=== PATIENT | male | born 1965 | race African-American/Black ===

== ENCOUNTER 2016-07-11 22:30 | Emergency (ER) ==
[2016-07-11 22:44] VITALS: BP 138/88
[2016-07-11] MEDS ORDERED: NORCO-7.5 PO ONE (23:10)
[2016-07-11] MEDS ORDERED: MOBIC PO ONE (23:10)
[2016-07-11] MEDS ORDERED: FLEXERIL PO ONE (23:10)
--- NOTE | 2016-07-11 23:14 | PROVIDER DOCUMENTATION ---
HPI-Musculoskeletal Pain/Inj <CedricNaviCalvin Vanessa ParminderZita - Last Filed: 07/11/16 23:11> - GENERAL Source: patient - HX OF PRESENT ILLNESS-MUSKULOSKELTAL Severity in ED: mild Onset/Duration: other (chronic) Timing: still present Any recent injury?: No Locality of Occurance: Home Similar Symptoms Previously?: Yes Recently seen or treated by another doctor?: No - BACK & NECK PAIN/INJURY Back/Neck Pain Location: reports: C-spine, lumbar spine <Karina Fitzgerald - Last Filed: 07/11/16 23:19> - GENERAL Chief Complaint: Back Pain Stated Complaint: BACK PAIN Time Seen by Provider: 07/11/16 22:58 - HX OF PRESENT ILLNESS-MUSKULOSKELTAL Nature of Presenting Problem: 50 year old M presents to the ED with a cc of lower back pain and neck pain. Pt states that he has chronic back pain. Pt states that he has not tried any Tylenol or Ibuprofen with no relief. PT states that he has been taking Ambien with no relief (Karina Fitzgerald) Review of Systems - Adult - REVIEW OF SYSTEMS - ADULT Constitutional: denies: chills, fever Eyes: reports: no symptoms reported Ears, Nose, Mouth & Throat: reports: no symptoms reported Cardiovascular: reports: no symptoms reported Respiratory: reports: no symptoms reported Gastrointestinal: reports: no symptoms reported Genitourinary: reports: no symptoms reported Musculoskeletal: reports: back pain, neck pain. denies: muscle aches, muscle weakness Integumentary: denies: skin sores/ulcer, skin thickening Neurological: reports: no symptoms reported Psychiatric: reports: no symptoms reported Endocrine: reports: no symptoms reported Hematologic/Lymphatic: reports: no symptoms reported Allergic/Immunologic: reports: no symptoms reported All Other Systems: Reviewed and Negative <Karina Fitzgerald - Last Filed: 07/11/16 23:19> Past History - Adult - PAST MEDICAL HISTORY-ADULT Major Childhood Illnesses: reports: denies history Cardiovascular: reports: arrhythmia, HTN, hyperlipidemia, [place] (cardiac cath no stent placed) Respiratory: reports: asthma Gastrointestinal: reports: denies history Obstetrical/Gynecological: reports: denies history Genitourinary: reports: denies history Musculoskeletal: reports: chronic pain (back), intervertebral disc disease Neurological: reports: denies history Endocrine/Immune: reports: Diabetes Other Conditions: reports: denies history - PRIOR SURGERIES/PROCEDURES Surgical/Procedure History: reports: orthopedic (extremity) (left hand) - PRIOR HOSPITALIZATIONS Prior Hospitalizations: reports: none - IMMUNIZATION STATUS Childhood Immunizations: See Nurse Assessment Flu Vaccine: See Nurse Assessment - FAMILY HISTORY Family History: reviewed, not pertinent, CVA/TIA (dad) <Calvin Andrade - Last Filed: 07/11/16 23:11> - PAST MEDICAL HISTORY-ADULT Review of Records: reports: Nursing Assessment Review, Medications Reviewed Cardiovascular: reports: HTN, hyperlipidemia, [place] Gastrointestinal: reports: GERD Musculoskeletal: reports: chronic pain Neurological: reports: CVA Endocrine/Immune: reports: Diabetes Other Conditions: reports: blindness - PRIOR SURGERIES/PROCEDURES Surgical/Procedure History: reports: cardiac stent, orthopedic (extremity), back /neck, other (eye) - IMMUNIZATION STATUS Childhood Immunizations: See Nurse Assessment Flu Vaccine: See Nurse Assessment - SOCIAL HISTORY Smoking: cigarettes Provider spent 3-5 mins advising pt. on dangers of tobacco.: Discussed manners to quit use, and f/u contacts for add'l counseling. Substance Use: none/never Alcohol Use Frequency: occasionally <Karina Fitzgerald - Last Filed: 07/11/16 23:19> Physical Exam-Injury Related - Physical Exam-Injury Related Initial Vital Signs Reviewed: Yes General Appearance: appears well, alert, no apparent distress Respiratory: chest non-tender, lungs clear, normal breath sounds Cardiovascular: normal peripheral pulses, regular rate, rhythm, no edema Back Exam: other (mild lower back tendernedd) Extremity: normal range of motion, non-tender, normal inspection Integumentary: normal color, warm/dry Psych/Mental Status: normal mood/affect, normal thought content, normal thought process, oriented x 3 <Karina Fitzgerald - Last Filed: 07/11/16 23:19> Progress <Calvin Andrade - Last Filed: 07/11/16 23:11> <Karina Fitzgerald - Last Filed: 07/11/16 23:19> - PLAN OF CARE/RESULTS Progress/Plan/Lab Results: plan of care: medications Orders Category Date Time Status Cyclobenzaprine [Flexeril] Med 07/11/16 23:10 Discontinued 10 mg PO NOW ONE Hydrocodone/APAP 7.5 mg/325 mg [[place]-7.5] Med 07/11/16 23:10 Discontinued 1 each PO NOW ONE Meloxicam [Mobic] Med 07/11/16 23:10 Discontinued 15 mg PO NOW ONE Vital Signs - 24 hr 07/11/16 22:40 Temperature 98.5 F Pulse Rate 74 Respiratory 18 Rate Blood Pressure 138/88 O2 Sat by Pulse 94 L Oximetry Pt given results and will be d/c home w/ rx to follow up with PCP. Pt verbally understood instructions. PT remained clinically stable throughout the course of the ED stay and will return if symptoms worsen. (Karina Fitzgerald) Departure - Departure Time of Disposition Order: 23:11 Certified Medical Emergency: Emergent <Calvin Andrade - Last Filed: 07/11/16 23:11> <Karina Fitzgerald - Last Filed: 07/11/16 23:19> - Departure DIAGNOSIS: Chronic lower back pain Qualifiers: Back pain laterality: bilateral Sciatica presence: without sciatica Qualified Code(s): M54.5 - Low back pain Disposition: HOME 01 Condition: Good Additional Instructions: ED Follow Up Instructions: You have been treated by a care provider in the Emergency Department. These instructions are being provided to you so you can have an understanding of how to care for yourself upon discharge. Upon discharge from the Emergency Department, you are responsible for making arrangements for follow-up care by a physician of your choice. Take all prescribed medications as directed. Return to the Emergency Department immediately for any new or worsening symptoms. You may call the Physician Referral phone number at [phone] to obtain a list of Physicians who are taking new patients. Prescriptions: Cyclobenzaprine [Flexeril] 10 mg PO TID PRN #30 tablet PRN Reason: Spasms Meloxicam [Mobic] 15 mg PO DAILY PRN #30 tablet PRN Reason: Pain Hydrocodone/Acetaminophen [[place] 7.5-325 Tablet] 1 each PO Q4-6H PRN PRN #20 tablet PRN Reason: Pain Referrals: None,PCP [Primary Care Provider] - Attestation - Scribe Verification/Attestation Scribe:: Karina Fitzgerald Acting as Scribe for:: Calvin Andrade Scribe documention review:: This chart was documented by a scribe and accurately reflects the service the provider performed and the decisions made by the provider. <Karina Fitzgerald - Last Filed: 07/11/16 23:19> Physician Attestation
== END 2016-07-11 23:30 | disposition home or self-care (01) ==
LOC: ED 22:30
DX: G89.29 Other chronic pain (principal); M54.5 Low back pain; M54.2 Cervicalgia; I10 Essential (primary) hypertension; E78.5 Hyperlipidemia, unspecified; I25.2 Old myocardial infarction; E11.9 Type 2 diabetes mellitus without complications; F17.210 Nicotine dependence, cigarettes, uncomplicated; Z79.899 Other long term (current) drug therapy; Z71.6 Tobacco abuse counseling; Z86.73 Personal history of transient ischemic attack (TIA), and cerebral infarction without residual deficits; Z95.5 Presence of coronary angioplasty implant and graft

== ENCOUNTER 2018-12-27 05:22 | Inpatient (IN) ==
[2018-12-27] MEDS ORDERED: ASPIRIN PO ONE (05:32)
[2018-12-27] MEDS ORDERED: DUONEB (A & A) INH ONE ×2 (05:54→06:09)
[2018-12-27 06:02] LABS: BASO# 0.03 X1000 (0.0-0.2); BASO% 0.3 % (0.0-0.8); EOS% 13.2 % (0.0-10.0); HEMATOCRIT 44.1 % (42.0-52.0); HEMOGLOBIN 14.9 g/dL (14.0-18.0); IMM GRAN# 0.05 X1000 (0.0-0.04); IMM GRAN% 0.5 % (0.0-0.5); LYMPH# 2.76 X1000 (1.2-3.4); MCH 28.4 PG (27-31); MCHC 33.8 g/dL (33-37); MONO# 0.88 X1000 (0.11-0.59); MONO% 8.9 % (1.7-9.3); MPV 10.1 FL (7.4-10.4); NEUT# 4.82 X1000 (1.4-6.5); NEUT% 49.1 % (42.2-75.2); PLT 329 X1000 (130-400); RBC 5.25 XMIL (4.7-6.1); RDW 16.7 % (11.5-14.5); WBC 9.84 X1000 (4.8-10.8)
[2018-12-27] MEDS ORDERED: MORPHINE IV ONE (06:09)
[2018-12-27] MEDS ORDERED: SOLU-MEDROL IV ONE (06:09)
[2018-12-27 06:18] LABS: AGAP 13; ALB/GLOB RATIO 1.5; ALBUMIN 4.4 g/dL (3.5-5.0); ALKALINE PHOSPHATASE 72 U/L (32-122); BUN 11 mg/dL (8-22); CALCIUM 9.3 mg/dL (8.8-10.2); CHLORIDE 104 mmol/L (98-107); COSMO 282; CREATININE 0.7 mg/dL (0.7-1.2); ESTIMATED GFR > 60; GLUCOSE 122 mg/dL (70-104); GOT 18 U/L (10-34); GPT 16 U/L (10-44); POTASSIUM 3.7 mmol/L (3.5-5.1); SODIUM 141 mmol/L (136-145); TCO2 24 mmol/L (25-35); TOTAL BILIRUBIN 0.29 mg/dL (0.20-1.00); TOTAL PROTEIN 7.3 g/dL (6.3-8.3)
[2018-12-27 06:25] LABS: CK PROFILE 332 U/L (24-204)
[2018-12-27 06:37] LABS: INR 0.93; PROTIME 12.5 Seconds (11.0-16.0)
--- NOTE | 2018-12-27 06:46 | PROVIDER DOCUMENTATION ---
HPI-General Adult - General Chief Complaint: Chest Pain Stated Complaint: Chest Pain and SOB Time Seen by Provider: 12/27/18 06:04 Source: patient Allergies/Adverse Reactions: Patient Allergies Allergy/AdvReac Type Severity Reaction Status Date / Time No Known Allergies Allergy Verified 12/27/18 05:47 Home Medications: Home Medication List Medication Instructions Recorded Confirmed Last Taken Type Lisinopril/Hydrochlorothiazide 1 each PO HS 11/06/17 12/27/18 Unknown History [Lisinopril-Hctz 20-12.5 mg Tab] Metformin [Glucophage] 500 mg PO DAILY 11/06/17 12/27/18 11/06/17 History Albuterol Sulfate [Albuterol 8.5 gm INHALATION Q4-6H PRN PRN #1 09/20/18 12/27/18 Unknown Rx Sulfate Hfa] [email or web address] Hydrocodone/Acetaminophen [[place] 1 ea PO TID 12/27/18 12/27/18 Unknown History 10-325 Tablet] - History of Present Illness -Gen Adult Nature of Presenting Problems: Pt presents with sob and cp, x 2 days, pmh of COPD, pt still smoking, cp is pressure to sharp, comes and goes, pt tried albuterol at home with minimal relief, pt denies f/c, mack, cough, ap, n/v/d. Pt is lying in bed in no acute distress. Location of Pain/Injury: reports: chest Pain Radiation: reports: no radiation Quality of Pain: reports: pressure, sharp Severity: reports: mild Onset/Duration: reports: 2 days ago Timing: reports: still present Context/Activities at Onset: reports: none Modifying Factors: improves with: nothing Associated Symptoms: reports: denies symptoms Similar Symptoms Previously?: Yes Recently seen or treated by another doctor?: No Review of Systems - Adult - REVIEW OF SYSTEMS - ADULT Constitutional: reports: no symptoms reported Eyes: reports: no symptoms reported Ears, Nose, Mouth & Throat: reports: no symptoms reported Cardiovascular: reports: see HPI Respiratory: reports: see HPI Gastrointestinal: reports: no symptoms reported Genitourinary: reports: no symptoms reported Musculoskeletal: reports: no symptoms reported Integumentary: reports: no symptoms reported Neurological: reports: no symptoms reported Psychiatric: reports: no symptoms reported Endocrine: reports: no symptoms reported Hematologic/Lymphatic: reports: no symptoms reported Allergic/Immunologic: reports: no symptoms reported All Other Systems: Reviewed and Negative Past History - Adult - PAST MEDICAL HISTORY-ADULT Review of Records: reports: Old Records Reviewed, Nursing Assessment Review, Medications Reviewed, Social history reviewed & non-contributory. Major Childhood Illnesses: reports: denies history Cardiovascular: reports: HTN, hyperlipidemia, [place] Respiratory: reports: asthma Gastrointestinal: reports: GERD Obstetrical/Gynecological: reports: denies history Genitourinary: reports: denies history Musculoskeletal: reports: chronic pain Neurological: reports: CVA, TIA Psychiatric: reports: depression Endocrine/Immune: reports: Diabetes Other Conditions: reports: blindness - PRIOR SURGERIES/PROCEDURES Surgical/Procedure History: reports: orthopedic (extremity), back/neck, other (eye) - PRIOR HOSPITALIZATIONS Prior Hospitalizations: reports: none - IMMUNIZATION STATUS Childhood Immunizations: See Nurse Assessment Flu Vaccine: See Nurse Assessment - FAMILY HISTORY Family History: reviewed, not pertinent, CVA/TIA (dad) Physical Exam-General - PHYSICAL EXAM-ADULT Initial Vital Signs Reviewed: Yes - CONSTITUTIONAL General Appearance: appears well - EYES Eyes: PERRL/EOMI - HEAD, EARS, NOSE, MOUTH & THROAT HENMT: normocephalic/atraumatic - NECK Neck: non-tender - RESPIRATORY Respiratory: no respiratory distress, no accessory muscle use - CARDIOVASCULAR Cardiovascular: regular rate, rhythm - GASTROINTESTINAL (ABDOMEN) Abdominal Exam: non tender, soft - LYMPHATIC Lymphatic: no adenopathy - MUSCULOSKELETAL Back Exam: normal inspection Extremity: normal range of motion - SKIN Integumentary: normal color - NEUROLOGIC Neurologic: grossly normal - PSYCHIATRIC Psych/Mental Status: normal mood/affect Progress - PLAN OF CARE/RESULTS Progress/Plan/Lab Results: Vital Signs - 8 hr 12/27/18 05:28 12/27/18 05:30 12/27/18 05:32 Temperature Pulse Rate 66 73 Respiratory Rate 16 20 Blood Pressure 184/103 O2 Sat by Pulse Oximetry 97 95 95 12/27/18 05:34 12/27/18 05:45 12/27/18 05:59 Temperature 98.1 F Pulse Rate 64 71 59 L Respiratory Rate 19 19 20 Blood Pressure 184/103 O2 Sat by Pulse Oximetry 96 97 95 12/27/18 06:00 12/27/18 06:01 12/27/18 06:31 Temperature Pulse Rate 59 L 60 81 Respiratory Rate 16 19 23 Blood Pressure 151/95 168/93 O2 Sat by Pulse Oximetry 99 99 96 Laboratory Results - last 24 hr 12/27/18 12/27/18 12/27/18 05:37 05:37 05:37 WBC 9.84 RBC 5.25 Hgb 14.9 Hct 44.1 MCV 84.0 MCH 28.4 MCHC 33.8 RDW Std Deviation 16.7 H Plt Count 329 MPV 10.1 Immature Gran % (Auto) 0.5 Neut % (Auto) 49.1 Lymph % (Auto) 28.0 [place] % (Auto) 8.9 Eos % (Auto) 13.2 H Baso % (Auto) 0.3 Immature Gran # (Auto) 0.05 H Neut # (Auto) 4.82 Lymph # (Auto) 2.76 [place] # (Auto) 0.88 H Eos # (Auto) 1.30 H Baso # (Auto) 0.03 PT INR PTT (Actin FS) 28.0 Sodium Potassium Chloride Carbon Dioxide Anion Gap BUN Creatinine Estimated GFR/1.73 m2 BUN/Creatinine Ratio Glucose Calculated Osmolality Calcium Total Bilirubin AST ALT Alkaline Phosphatase Creatine Kinase Troponin T < 0.010 [id number] Pept Total Protein Albumin Globulin Albumin/Globulin Ratio 12/27/18 12/27/18 12/27/18 05:37 05:37 05:37 WBC RBC Hgb Hct MCV MCH MCHC RDW Std Deviation Plt Count MPV Immature Gran % (Auto) Neut % (Auto) Lymph % (Auto) [place] % (Auto) Eos % (Auto) Baso % (Auto) Immature Gran # (Auto) Neut # (Auto) Lymph # (Auto) [place] # (Auto) Eos # (Auto) Baso # (Auto) PT 12.5 INR 0.93 PTT (Actin FS) Sodium 141 Potassium 3.7 Chloride 104 Carbon Dioxide 24 L Anion Gap 13 BUN 11 Creatinine 0.7 Estimated GFR/1.73 m2 > 60 BUN/Creatinine Ratio 16 Glucose 122 H Calculated Osmolality 282 Calcium 9.3 Total Bilirubin 0.29 AST 18 ALT 16 Alkaline Phosphatase 72 Creatine Kinase 332 H Troponin T [id number] Pept 7 Total Protein 7.3 Albumin 4.4 Globulin 2.9 Albumin/Globulin Ratio 1.5 Orders Category Date Time Status Cardiac Monitoring DIRECTED Care 12/27/18 05:32 Active Oxygen Therapy- ED Nursing DIRECTED Care 12/27/18 05:32 Active Saline Loc NOW Care 12/27/18 05:32 Active CHEST-PORTABLE [RAD] Stat Exams 12/27/18 05:36 Taken CBC WITH ELECTRONIC DIFF [HEME] Stat Lab 12/27/18 05:37 Completed CK PROFILE [SP CHEM] Stat Lab 12/27/18 05:37 Results COMPREHENSIVE METABOLIC PANEL [CHEM] Stat Lab 12/27/18 05:37 Results PRO B-NATRIURETIC PEPTIDE Stat Lab 12/27/18 05:37 Completed PROTIME WITH INR [COAG] Stat Lab 12/27/18 05:37 Completed PTT [COAG] Stat Lab 12/27/18 05:37 Completed TROPONIN T Stat Lab 12/27/18 05:37 Completed Albuterol 2.5MG/Ipratrop 0.5MG [Duoneb (A & A)] Med 12/27/18 05:54 Discontinued 3 ml INH NOW ONE Albuterol 2.5MG/Ipratrop 0.5MG [Duoneb (A & A)] Med 12/27/18 06:09 Discontinued 3 ml INH NOW ONE Aspirin Med 12/27/18 05:32 Discontinued 325 mg PO NOW ONE Methylprednisolone Sod Succ [Solu-Medrol] Med 12/27/18 06:09 Discontinued 125 mg IV NOW ONE Morphine Med 12/27/18 06:09 Discontinued 4 mg IV NOW ONE Aerosol Treatments Routine Oth 12/27/18 05:55 Active Aerosol Treatments Routine Oth 12/27/18 06:09 Active Aerosol Treatments Stat Oth 12/27/18 05:55 Active Aerosol Treatments Stat Oth 12/27/18 06:09 Active CP/SOB/Palp >45 yrs of Age Stat Oth 12/27/18 05:32 Ordered EKG [EKG] Stat Ther 12/27/18 05:32 Ordered At recheck pt admits that he is still SOB and has chest pressure. He is still smoking and states that his last stress test was "abnormal" but hasnt followed up yet. Result Diagrams: 12/27/18 05:37 12/27/18 05:37 - CONSULTS/PCP/HOSPITALIST Notification #1 *Consult/PCP/Hospitalist*: Lea BERMEO for Hospitalist Time Discussed: 08:10 Consult Disposition: Will see in ED, Admit Departure - Departure Date of Disposition Decision: 12/27/18 Time of Disposition Decision: 08:11 DIAGNOSIS: Chest pain, COPD exacerbation, HTN (hypertension) Disposition: ADMITTED INPATIENT 09 Certified Medical Emergency: Emergent Condition: Fair Referrals and Follow-Ups: None,PCP [NON-STAFF PROVIDER] - - Critical Care Note This patient required my direct & personal management of CC.: No Attestation - Physician/ ELAN Attestation Patient care was provided by Advanced Practice Provider:: No The physician spent face to face time with patient:: Yes Advanced Practice Provider documentation review:: Supervising physician onsite and consulted in the evaluation and care of this patient. The physician did have a face to face encounter with the patient.
--- NOTE | 2018-12-27 06:46 | EKG Report ---
Test Performed on : 12/27/2018 05:26:53 AM Test Reason : chest pain Blood Pressure : / mmHG Vent. Rate : 068 BPM Atrial Rate : 068 BPM P-R Int : 198 ms QRS Dur : 084 ms QT Int : 330 ms P-R-T Axes : 065 -07 051 degrees QTc Int : 350 ms Normal sinus rhythm. Nonspecific T wave abnormality Abnormal ECG When compared with ECG of 14-OCT-2018 19:20, (Unconfirmed) QT has shortened Unconfirmed Result
[2018-12-27 06:56] LABS: CK INDEX 1.1 (0.0-2.5); CK-MB 3.58 ng/mL (0.0-5.0)
--- NOTE | 2018-12-27 07:21 | Diag Imaging Result Doc PS360 ---
EXAM: CHEST-PORTABLE INDICATION: chest pian TECHNIQUE: One view COMPARISON: 10/14/2018 FINDINGS: The lungs are grossly clear. There is no discrete pleural fluid collection or pneumothorax. The cardiomediastinal silhouette and central vasculature are grossly unremarkable accounting for magnification from AP technique. IMPRESSION: No evidence of acute pathology by plain radiograph. Electronically signed by Jesus Quintana 12/27/2018 7:19 AM
[2018-12-27] MEDS ORDERED: G.I. COCKTAIL PO ONE (09:09)
[2018-12-27] MEDS ORDERED: DUONEB (A & A) INH PRN (09:13)
[2018-12-27] MEDS ORDERED: RANEXA PO SCH (09:15)
[2018-12-27] MEDS: TOPROL XL PO SCH (10:02)
[2018-12-27 10:26] LABS: URINE SOURCE VOIDED
[2018-12-27] MEDS ORDERED: TYLENOL PO PRN (10:28)
[2018-12-27 10:30] LABS: BILIRUBIN URINE NEGATIVE (NEGATIVE); BLOOD URINE TRACE (NEGATIVE); COLOR YELLOW; GLUCOSE URINE NEGATIVE (NEGATIVE); KETONE URINE NEGATIVE (NEGATIVE); LEUKOCYTES URINE NEGATIVE (NEGATIVE); NITRITE URINE NEGATIVE (NEGATIVE); PROTEIN URINE TRACE mg/dL (NEGATIVE); SP GRAVITY URINE 1.023; TURBIDITY URINE CLEAR (CLEAR); UROBILINOGEN URINE NORMAL (NORMAL)
[2018-12-27 10:32] LABS: UR EPITHELIAL CELLS <10 /HPF (<10); URINE BACTERIA NEGATIVE /HPF; URINE RBC <10 /HPF (<10); URINE WBC <10 /HPF (<10)
[2018-12-27] MEDS: TEARISOL OPH SOLUTION BOTH EYES PRN (11:08)
[2018-12-27 11:27] LABS: HEMOGLOBIN A1C 6.1 % (4.8-6.0)
[2018-12-27] MEDS: HUMALOG SUBQ SCH ×4 (11:30→22:09)
[2018-12-27] MEDS ORDERED: DUONEB (A & A) INH SCH (11:30)
[2018-12-27] MEDS: DUONEB (A & A) INH SCH ×4 (11:32→23:15)
[2018-12-27] MEDS ORDERED: SOLU-MEDROL IV SCH (12:00)
[2018-12-27 12:18] LABS: UR AMPHETAMINES QUAL NONE DETECTED (NONE DETECT); UR BARBITUATES QUAL NONE DETECTED (NONE DETECT); UR BENZODIAZEPIN QUAL NONE DETECTED (NONE DETECT); UR CANNABINOIDS QUAL NONE DETECTED (NONE DETECT); UR COCAINE QUAL PRESUMPTIVE POSITIVE (NONE DETECT); UR METHADONE QUAL NONE DETECTED (NONE DETECT); UR OPIATES QUAL PRESUMPTIVE POSITIVE (NONE DETECT); UR OXYCODONE QUAL NONE DETECTED (NONE DETECT); UR PCP QUAL NONE DETECTED (NONE DETECT)
[2018-12-27] MEDS: NORCO-7.5 PO PRN ×2 (12:49→23:30)
--- NOTE | 2018-12-27 17:07 | HISTORY AND PHYSICAL ---
CHIEF COMPLAINT: Chest pain, shortness of breath. HISTORY OF PRESENT ILLNESS: This is a 53-year-old gentleman with a history of COPD, CAD, status post [place] in 2011 with subsequent catheterization in October 2012, CVA, diabetes mellitus type 2, hypertension. He presents to the emergency room complaining of mid sternal to epigastric chest pressure that has been present for 2 to 3 days as well as increasing shortness of breath and wheezing. He describes the pain as a sharp type of pain that comes and goes. He does state that this was relieved somewhat with albuterol nebs. He states this pain has been persistent since his [place] in 2015. It waxes and wanes. He denied any palpitations, syncope, any dizziness. He does complain of a productive cough. According to his records, he underwent a myocardial perfusion scan in September 2012 which revealed myocardial perfusion images reveal revealing a low-grade reversible perfusion defect in the inferior wall, mid and base and inferior lateral wall, suggestion of ischemia. Subsequent heart catheterization 10/03/2018. Subsequent heart catheterization revealed nonobstructive coronary artery disease having 0 stenosis in the left main, proximal LAD and RCA with 10% in the mid or distal LAD, 20% in the mid 1st diagonal, and 30% in the left circumflex. At this time it was recommended maximal medical therapy and risk factor modifications. In reviewing the medications with the patient. He has not been taking medications as he was instructed after this catheterization. PAST MEDICAL HISTORY: 1. CVA in 2014. 2. [place]. 3. Chronic obstructive pulmonary disease. 4. Diabetes mellitus type 2. 5. Hypertension. 6. Gastroesophageal reflux disease. 7. History of alcohol abuse. 8. History of cocaine abuse. 9. Recurrent MDD with severe psychotic features. PAST SURGICAL HISTORY: Left hand repair after trauma, right corneal. SOCIAL HISTORY: He smokes about a pack a day. He does drink alcohol socially. He has a history of cocaine abuse. ALLERGIES: No known drug allergies. HOME MEDICATIONS: DuoNebs, [place]. SYSTEM REVIEW: Review of systems is discussed with patient with pertinent positives stated in the HPI. He denied any syncope or dizziness, any palpitations, any nausea, vomiting, diarrhea, constipation, black or bloody vomitus or stools, any hematuria, dysuria, frequency, urgency. PHYSICAL EXAMINATION: GENERAL: This is a 53-year-old gentleman who is lying on the stretcher in the emergency room in no distress. HEENT: Head is normocephalic, atraumatic. Mucous membranes are moist. NECK: Supple with trachea midline. No JVD. CARDIOVASCULAR: Regular rate and rhythm. S1 and S2 appreciated. No murmur. He has no lower extremity edema. Calves nontender bilateral with peripheral pulses palpable x4 extremities. PULMONARY: He has wheezing throughout. Chest rises and falls symmetrically with respiration. Chest wall is nontender to palpation. GASTROINTESTINAL: Abdomen is soft, nontender, nondistended with bowel sounds in all 4 quadrants. GENITOURINARY: He has no CVA or suprapubic tenderness. NEUROLOGIC: He is alert and oriented x3. SKIN: Warm and dry. LABORATORY DATA: WBC is 9.8 with hemoglobin 14.9, hematocrit 44.1, and platelets 329,000. INR 0.93, sodium 141, potassium 3.7, BUN 11, creatinine 0.7, glucose of 122. Troponins negative on multiple occasions with a CPK of 332 at 5:30 a.m. Urinalysis is essentially negative. Chest x-ray reveals no evidence of acute pathology by plain radiograph. VITAL SIGNS: Blood pressure is 156/92 with a heart rate of 72, respirations are 18 to 22, temperature is 98.1 degrees oral with O2 saturation 93% to 96% on 2 L nasal cannula. ASSESSMENT AND PLAN: 1. Chest pain. The patient will be admitted to the hospital and placed on telemetry. We will continue to trend his cardiac enzymes as well as troponin. We will recheck EKG. We will consult Cardiology. We will identify his home medications and continue as appropriate. 2. Cocaine use. UDS was positive for Cocaine. Discussed cessation, to which he stated he has no intention of stopping. 3 Chronic obstructive pulmonary disease acute on chronic exacerbation. Continue with supplemental oxygen DuoNeb q.4 hours with q.2 hours p.r.n. Steroids to taper. We will review his home medications and continue as appropriate. 4. Diabetes mellitus type 2. Pattern blood glucose with sliding scale insulin. The patient states that he does not take his metformin as prescribed and he has not taken it in some time. We will check a hemoglobin A1c. 5. Hypertension. The patient has been prescribed lisinopril, hydrochlorothiazide, metoprolol, Ranexa, we will continue the lisinopril hydrochlorothiazide and metoprolol and monitor vital signs. We can add amlodipine give pressures continue to be elevated. 6. Gastroesophageal reflux disease. The patient stated that he did have more trouble with reflux, especially after lying down. He was given a GI cocktail. He states this did help his pain. We will place him on a proton pump inhibitor. 7. History of chronic back pain. We will continue his [place]. 8. History of corneal transplant. We will attempt to identify his eye drops and continue. CBC, CMP and magnesium in the morning. We will check magnesium now. The plan was discussed with Dr. Abbott. Further treatments pending hospital course. Dictated by YOGI Valera for Saroj Turner MD Addendum: Patient seen and examined by myself. Agree with YOGI note. It reflects my assessment and plan. Patient is being admitted to hospital for chest pain. Work up in progress. UDS with cocaine positive is noted. Will consult Cardiology and will go from there. cc: YOGI Valera MD [facility]
[2018-12-27] MEDS: SOLU-MEDROL IV SCH (20:31)
[2018-12-27] MEDS ORDERED: LIPITOR PO SCH (21:00)
[2018-12-27] MEDS ORDERED: PRINZIDE 20/12.5MG PO SCH (21:00)
--- NOTE | 2018-12-27 21:05 | CARDIOLOGY CONSULTATION ---
DATE: 12/27/2018 CHIEF COMPLAINT ON PRESENTATION: Cough, chest pain, shortness of breath. HISTORY OF PRESENT ILLNESS: Mr. Carranza is a 53-year-old gentleman who presents for the above complaints. These have been ongoing for the last few days to a week or so. He has had several bouts of coughing fits that he reports are occasionally productive of some clear sputum. He has had no fevers that he is aware of. Notably, he endorses having had cocaine in the last couple to 3 days. He continues to smoke cigarettes. He has had no exertional chest pain, and reports some heaviness in his chest that has been exacerbated by his coughing bouts. PAST MEDICAL HISTORY: Significant for: 1. Coronary disease. His most recent cardiac catheterization was performed in early October 2018. This demonstrated a normal left main, normal proximal LAD. Mid and distal LAD had scant luminal irregularities. The first diagonal had a mid 20% lesion. The mid circumflex had 30% disease and the right coronary artery was normal. 2. Hypertension. 3. Hyperlipidemia. 4. Diabetes. 5. Tobacco abuse. 6. History of cerebrovascular accident. 7. Polysubstance abuse. SOCIAL HISTORY: The patient does endorse cocaine use recently as well as cigarette use. FAMILY HISTORY: Hypertension. REVIEW OF SYSTEMS: A 10 system review of systems is negative except for those things mentioned in the HPI. PHYSICAL EXAMINATION: Vital Signs: The patient is afebrile. His heart rate most recently was 76. Blood pressure is 152/90. General: He is no acute distress. HEENT: Oropharynx is moist. Normal dentition. Eye examination is pink conjunctivae, white sclerae. Neck: Examination shows no obvious thyromegaly or thyroid tenderness. Cardiovascular: He sounds to be in a regular rate and rhythm. He does not have any obvious murmurs. He has no S3. He has no lower extremity edema. Chest: Has marked bilateral end-expiratory wheezes. The patient had multiple coughing fits during the course of the evaluation. Abdomen: Soft, nontender. He has no obvious organomegaly. Skin: Warm and dry throughout. Neurological: He is moving all extremities well. He has no lateralizing deficits. PERTINENT DATA: His chest x-ray shows no evidence of any acute pathology. His EKG on presentation shows sinus rhythm. His white count is 9.8, his hematocrit is 44, platelet count is 329,000. His sodium is 141, potassium is 3.7. His BUN is 11 and creatinine 0.7. Cardiac enzymes are negative times multiple sets. His UDS was positive for opiates as well as cocaine. ASSESSMENT: Mr. Carranza is a 53-year-old gentleman with nonobstructive coronary disease by recent catheterization, who presents with atypical chest pain as well as significant cough and shortness of breath and wheezing. PLAN: It appears most of his symptomatology at present is related to pulmonary issues. I would recommend treatment of those. I have advised him to quit smoking and to quit using illicit substances. I would recommend reinstitution of his medications, including his lisinopril. I will place him on a high-intensity statin considering his LDL of 152 and his known coronary disease. Please contact us if we can be of further assistance with this patient. cc: Rickey Do MD
[2018-12-28] MEDS ORDERED: HALL'S COUGH LOZENGE MT PRN (02:13)
[2018-12-28] MEDS: SOLU-MEDROL IV SCH ×2 (03:16→11:17)
[2018-12-28] MEDS: TEARISOL OPH SOLUTION BOTH EYES PRN (03:21)
[2018-12-28] MEDS: DUONEB (A & A) INH SCH ×4 (03:31→15:05)
[2018-12-28] MEDS ORDERED: PRILOSEC PO SCH (07:00)
[2018-12-28 07:19] LABS: BASO# 0.01 X1000 (0.0-0.2); EOS# 0.04 X1000 (0.0-0.7); EOS% 0.2 % (0.0-10.0); HEMOGLOBIN 14.5 g/dL (14.0-18.0); IMM GRAN# 0.09 X1000 (0.0-0.04); IMM GRAN% 0.4 % (0.0-0.5); LYMPH# 1.78 X1000 (1.2-3.4); LYMPH% 8.4 % (20.5-51.1); MCH 28.4 PG (27-31); MCHC 33.7 g/dL (33-37); MCV 84.1 FL (81-99); MONO# 0.63 X1000 (0.11-0.59); MPV 10.5 FL (7.4-10.4); NEUT# 18.57 X1000 (1.4-6.5); PLT 320 X1000 (130-400); RBC 5.11 XMIL (4.7-6.1); RDW 16.7 % (11.5-14.5); WBC 21.12 X1000 (4.8-10.8)
[2018-12-28 07:30] LABS: AGAP 18; ALBUMIN 4.3 g/dL (3.5-5.0); BUN 15 mg/dL (8-22); CALCIUM 9.3 mg/dL (8.8-10.2); CHLORIDE 100 mmol/L (98-107); COSMO 287; CREATININE 0.7 mg/dL (0.7-1.2); ESTIMATED GFR > 60; GLUCOSE 178 mg/dL (70-104); POTASSIUM 3.6 mmol/L (3.5-5.1); SODIUM 141 mmol/L (136-145); TCO2 23 mmol/L (25-35); TOTAL BILIRUBIN 0.32 mg/dL (0.20-1.00); TOTAL PROTEIN 7.3 g/dL (6.3-8.3)
[2018-12-28 07:31] LABS: ALB/GLOB RATIO 1.4; ALKALINE PHOSPHATASE 64 U/L (32-122); GOT 13 U/L (10-34); GPT 15 U/L (10-44); MAGNESIUM 1.8 mg/dL (1.5-2.7)
[2018-12-28 07:43] LABS: LYMPHS 6 % (21-51); MONO 6 % (1-9); SEGS 86 % (42-75)
[2018-12-28] MEDS: TOPROL XL PO SCH (11:13)
[2018-12-28] MEDS: HUMALOG SUBQ SCH ×4 (13:00→16:54)
[2018-12-28] MEDS ORDERED: ASPIRIN PO SCH (13:00)
[2018-12-28 16:20] VITALS: BP 137/78
[2018-12-28] MEDS: NORCO-7.5 PO PRN (16:59)
--- NOTE | 2018-12-29 09:11 | DISCHARGE SUMMARY ---
ADMISSION DATE: 12/27/2018 DISCHARGE DATE: 12/28/2018 DISCHARGE DISPOSITION: Home with family. DISCHARGE CONDITION: Hemodynamically stable. Shortness of breath has improved. The patient was advised to remain inside the hospital for at least 24 hours. However, he was insistent on getting discharged. He understood the risk of COPD exacerbation, so it was decided to discharge him on oral steroids after providing detailed information and instructions, despite contrary to medical advise. DISCHARGE DIAGNOSES: 1. Acute chronic obstructive pulmonary disease exacerbation, likely due to acute viral bronchitis. 2. Atypical chest pain due to chronic obstructive pulmonary disease exacerbation. 3. Hyperlipidemia. 4. Essential hypertension. OTHER DIAGNOSES: 1. History of essential hypertension. 2. History of cerebrovascular accident in 2014. 3. History of nonobstructive coronary artery disease, managed medically. 4. Cocaine abuse, ongoing. 5. Noninsulin-dependent diabetes mellitus. DISCHARGE MEDICATIONS: Metformin 500 mg daily, hydrocodone acetaminophen 1 tablet p.o. t.i.d., atorvastatin 40 mg at nighttime, albuterol sulfate 8.5 grams inhaler 1 inhalation every 4 hours as needed for shortness of breath, aspirin 325 mg daily, lisinopril/hydrochlorothiazide 20/12.5 mg tablet 2 tablets at nighttime, prednisone 40 mg daily for 5 days. DISCHARGE PHYSICAL EXAMINATION: Vital Signs: temperature 98.9 degrees, pulse 92, respiratory rate 14, blood pressure 137/78, saturation 93% on room air. General: Does not appear in any acute distress. HEENT: Oral cavity is moist. Lungs: Air entry bilaterally equal. No wheeze, rhonchi, crackles. He denies any more chest pain. His shortness of breath is better. Cardiovascular: S1, S2 normal. No murmur or gallop. Abdomen: Soft, nontender. Extremities: No lower extremity edema. Neurologic: He is alert and oriented x3. SIGNIFICANT LABORATORY DATA DURING HOSPITAL ADMISSION AND DISCHARGE: His WBC was 9000 on admission, which increased to 21,000, likely because of steroid use. His hemoglobin is 14.5, platelets 320,000. Potassium 3.6, BUN 15, creatinine 0.7, blood sugar 195. His LDL was elevated. His urine toxicology was positive for urine opiates and cocaine. SIGNIFICANT MICROBIOLOGY DURING HOSPITAL ADMISSION: None. SIGNIFICANT IMAGING DURING HOSPITAL ADMISSION: Chest x-ray did not have any evidence of acute pathology. Electrocardiogram performed had normal sinus rhythm. CONSULTATIONS DURING HOSPITALIZATION: Cardiology. HOSPITAL COURSE SUMMARY: Mr. Carranza is a 53-year-old man with past medical history of multiple episodes of chest pain, with coronary angiography in 2019 showing nonobstructive coronary artery disease, managed with medical treatment, ongoing cocaine abuse, COPD with active tobacco abuse, who came in with chief complaint of cough, chest pain, and shortness of breath of about 2 weeks duration, which was not getting better. In the emergency room, EKG was unremarkable, troponins were negative, and chest x-ray did not detect any pneumonia. The patient was admitted for nebulized bronchodilators, intravenous steroids for acute COPD exacerbation, and Cardiology team was consulted, which thought that his chest pain-like symptoms were atypical and likely because of his COPD exacerbation. With bronchodilators and IV steroids, the patient improved and he was breathing well on room air. He was no longer short of breath. The initial plan was to change IV steroids to oral steroids, and monitor the patient inside the hospital. However, the patient did not want to stay back in the hospital, and he wanted to go home despite understanding the risks associated with that. Considering the patient is only in [id number] shortness of breath at the moment, it was decided to let the patient go home on oral steroids, though it was against advice. The patient was extensively counseled about COPD exacerbation, quitting smoking and cocaine. TIME SPENT: More than 30 minutes were spent in discharging this patient. All of his questions were answered. cc: Mark Pace MD
== END 2018-12-28 19:09 | disposition home or self-care (01) | DRG 192 ==
LOC: ED 05:22 → 4N 10:32 → SUATTDRO 10:32
PROVIDERS: ATTEND Internal Medicine